=== PATIENT | male | born 1940 | race Caucasian/White ===

== ENCOUNTER 2018-05-23 08:32 | Inpatient (IN) | payer MEDICARE, OTHER ==
[~2018-05-23] VITALS: Ht 167.6 cm; Wt 80.6 kg
[~2018-05-23 08:32] MED LIST: ACET325 PO; AMLO5 PO; ASPI81EC PO; BACL10; BACL10 PO; CHOL10002 PO; CLOP75 PO; CYCL10 PO; Cymbalta30 MG PO; FINA5 PO; FURO40 PO; GABA300; GABA300 PO; GABA600 PO; HYDACE5; HYDMOR2 PO; HYDMOR4 PO; HYDROCODONE; LAVAP17G; LISI20; LISI20 PO; METO25 PO; MULVITMIND PO; Multiple Vitam1 EAC1 PO; Nitrostat0.4 MG SL; OMEG1CAP30 PO; OXYC10ER PO; OXYC40ER; OXYC40ER PO; Omega 3 1,0001 EACH PO; PRED20 PO; REFRESH TEARS BOTHEYES; TAMS.4ER; TAMS.4ER PO; TEMA15; XARELTO20 MG PO; ZOLP10; ZOLP5 PO
[2018-05-23 09:32] LABS: BASOPHILS ABSOLUTE AUTO 0.04 K/mm3 (0.00-0.23); BASOPHILS PERCENT AUTO 0 % (0-2); EOSINOPHILS ABSOLUTE AUTO 0.01 K/mm3 (0.00-0.68); EOSINOPHILS PERCENT AUTO 0 % (0-6); Hematocrit 26.8 % (37.0-53.0); Hemoglobin 8.1 g/dL (13.5-17.5); IMMATURE GRAN ABSOLUTE AUTO 0.13 K/mm3 (0.00-0.10); IMMATURE GRAN PERCENT AUTO 1 % (0-1); LYMPHOCYTES ABSOLUTE AUTO 1.63 K/mm3 (0.84-5.20); LYMPHOCYTES PERCENT AUTO 10 % (21-46); MONOCYTES ABSOLUTE AUTO 1.04 K/mm3 (0.16-1.47); MONOCYTES PERCENT AUTO 6 % (4-13); Mean Corpuscular HGB 32.1 pg (26.0-34.0); Mean Corpuscular HGB Conc 30.2 g/dL (31.5-36.5); Mean Corpuscular Volume 106 fL (80-100); NEUTROPHILS PERCENT AUTO 83 % (41-73); NRBC ABSOLUTE 0.07 K/mm3 (0.00-0.02); NRBC Auto 0.4 /100 WBC (0.0-0.2); Platelet Count 345 K/mm3 (150-400); RDW Coefficient Variation 14.9 % (11.7-14.2); RDW Standard Deviation 57.1 fL (35.1-46.3); Red Blood Cell Count 2.52 M/mm3 (4.30-5.90); White Blood Cell Count 16.25 K/mm3 (4.00-11.30)
[2018-05-23 10:14] LABS: Albumin, Blood 3.2 g/dL (3.4-5.0); Albumin/Globulin Ratio 0.8 (0.8-1.8); Bilirubin, Total 0.9 mg/dL (0.1-1.0); Bun/Creatinine Ratio 40.3 (12.0-20.0); Calcium, Blood 8.9 mg/dL (8.5-10.1); Creatinine, Blood 1.29 mg/dL (0.60-1.20); Globulin, Blood 4.1 g/dL (2.2-4.0); Potassium, Blood 4.2 mmol/L (3.5-5.5); Total Protein, Blood 7.3 g/dL (6.4-8.2)
[2018-05-23 10:22] LABS: Troponin I 1.01 ng/mL (0.000-0.040)
[2018-05-23 12:02] LABS: International Normalized Ratio 1.34; Prothrombin Time Results 13.8 Sec (9.7-11.5)
[2018-05-23] MEDS ORDERED: ACID REDUCER20 MG PO (13:49)
[2018-05-23] MEDS ORDERED: IBUP400 PO (13:49)
[2018-05-23] MEDS ORDERED: [UNRECOGNIZED DRUG - CODE] PO (14:59)
[2018-05-23 15:07] LABS: PCO2 Arterial 23.8 mmHg (35-45); PO2 Arterial 58.8 mmHg (80-100); pH Blood Arterial 7.46 (7.35-7.45)
[2018-05-23 16:58] LABS: Source, Urine Clean Catch
[2018-05-23 17:06] LABS: Bilirubin, Urine Neg (Neg); Blood, Urine 2+ (Neg); Glucose Qualitative, Urine Neg (Neg); Ketones, Urine 2+ (Neg); Leukocyte Esterase, Urine Neg (Neg); Nitrite, Urine Neg (Neg); Protein, Urine 2+ (Neg); Specific Gravity, Urine 1.025 (1.003-1.022); Urobilinogen, Urine 1+ (Normal)
[2018-05-23 17:29] LABS: Appearance, Urine Clear (Clear); Color, Urine Yellow (P-Yellow)
[2018-05-23 17:32] LABS: Squamous Epithelial Cells Few /hpf (Few)
[2018-05-23 17:34] LABS: Mucus Mod (0-Heavy)
[2018-05-23 17:35] LABS: Amorphous Light (0-Heavy); Bacteria Few /hpf
[2018-05-23 19:15] LABS: Creatine Kinase MB 6.4 ng/mL (0.0-3.6)
[2018-05-23 19:21] LABS: Troponin I 1.3 ng/mL (0.000-0.040)
--- NOTE | 2018-05-23 19:52 | NUR ---
ARRIVAL TO UNIT Assumed care of pt upon arrival to unit at 1541. Report recieved from Mercedes PACHECO. Pt arrived wearing venturi mask at 31% FiO2 and 4 LPM. Pt arrived with his spouse, Autumn, who helped with admission questions. Autumn stated she gave his medication list to EMS and will bring in a medication list to our unit tomorrow. Autumn also completed the pt's consent to verbal release of information and blood consent. Pt able to state "yes" or "no" to answer questions and often requires reorientation. Pt able to state name and date of . When asked where he is, he exclaims "I don't know". Pt provides the same response when asked what year it is. Per the pt's , the pt does not drink alcohol. She also states that he is wheelchair bound at baseline. Pt removes venturi mask often. O2 sats remain 90% or greater with room air. ST per telemetry. Fleets enema administered. Bedside report given to Henrietta PACHECO who is to assume care of pt at this time.
--- NOTE | 2018-05-23 19:59 | NUR ---
DNR Spouse, Autumn, verified the pt's DNR status. Order double-checked by Veronica PACHECO. Wristband placed to right wrist.
[2018-05-24 02:24] LABS: BASOPHILS ABSOLUTE AUTO 0.03 K/mm3 (0.00-0.23); BASOPHILS PERCENT AUTO 0 % (0-2); EOSINOPHILS PERCENT AUTO 0 % (0-6); Hematocrit 27.1 % (37.0-53.0); Hemoglobin 8.3 g/dL (13.5-17.5); IMMATURE GRAN ABSOLUTE AUTO 0.26 K/mm3 (0.00-0.10); IMMATURE GRAN PERCENT AUTO 1 % (0-1); LYMPHOCYTES ABSOLUTE AUTO 1.04 K/mm3 (0.84-5.20); LYMPHOCYTES PERCENT AUTO 6 % (21-46); MONOCYTES ABSOLUTE AUTO 1.13 K/mm3 (0.16-1.47); MONOCYTES PERCENT AUTO 6 % (4-13); Mean Corpuscular HGB 32.9 pg (26.0-34.0); Mean Corpuscular HGB Conc 30.6 g/dL (31.5-36.5); Mean Corpuscular Volume 108 fL (80-100); Mean Platelet Volume 10.1 fL (9.1-12.4); NEUTROPHILS PERCENT AUTO 87 % (41-73); NRBC ABSOLUTE 0.23 K/mm3 (0.00-0.02); NRBC Auto 1.2 /100 WBC (0.0-0.2); Platelet Count 329 K/mm3 (150-400); RDW Coefficient Variation 15.4 % (11.7-14.2); RDW Standard Deviation 57.5 fL (35.1-46.3); Red Blood Cell Count 2.52 M/mm3 (4.30-5.90); White Blood Cell Count 19.06 K/mm3 (4.00-11.30)
[2018-05-24 02:41] LABS: Albumin, Blood 3.1 g/dL (3.4-5.0); Albumin/Globulin Ratio 0.9 (0.8-1.8); Bilirubin, Total 1.5 mg/dL (0.1-1.0); Bun/Creatinine Ratio 48.4 (12.0-20.0); Calcium, Blood 8.5 mg/dL (8.5-10.1); Creatinine, Blood 1.28 mg/dL (0.60-1.20); Globulin, Blood 3.6 g/dL (2.2-4.0); Potassium, Blood 3.9 mmol/L (3.5-5.5); Total Protein, Blood 6.7 g/dL (6.4-8.2)
[2018-05-24 02:46] LABS: Creatine Kinase MB 15.2 ng/mL (0.0-3.6); Creatine Kinase MB Index 1.6 (0.0-4.0)
[2018-05-24 02:58] LABS: Percent Saturation 26.1 % (20.0-50.0)
[2018-05-24 03:04] LABS: Troponin I 5.36 ng/mL (0.000-0.040)
--- NOTE | 2018-05-24 06:29 | NUR ---
SHIFT SUMMARY: PATIENT INTERMITTENT CONFUSION, C/O PAIN IN RIGHT HIP AND LOWER BACK, MEDICATION GIVEN PER MD ORDERS. -DIGITAL DISIMPACTION ATTEMPTED PER MD ORDERS, NO FECAL MATTER FOUND IN RECTUM -PHOTOS TAKEN OF LEFT LEG SCABS, LEFT FOOT WOUNDS, AND RIGHT BIG TOE BLACK SPOT -PATIENT VOMITED DARK MAROON SUBSTANCE, PATIENT C/O CHEST PAIN-MEDICATION GIVEN AND EKG OBTAINED, MD FREY AWARE, ORDERS RECIEVED TROPONIN AND LACTIC LAB VALUES INCREASING, MD JEFFERSON MADE AWARE, ORDERS RECIEVED PATIENT MONITORED ALMOST ONE ON ONE ALL NIGHT, RESTRAINTS ORDER RECIEVED AND INITIATED THIS AM AT APPROX 0620, BED LOW AND LOCKED, CALL LIGHT WITHIN REACH
--- NOTE | 2018-05-24 08:30 | NUR ---
pt labs are worsening, Dr. Malave notified, he came to see pt and sent to icu, report given to Tanisha. all belongings went with pt. brother notified of move and he will notify .
[2018-05-24 09:27] LABS: Bun/Creatinine Ratio 47.8 (12.0-20.0); Calcium, Blood 8.7 mg/dL (8.5-10.1); Creatinine, Blood 1.38 mg/dL (0.60-1.20)
--- NOTE | 2018-05-24 09:28 | NUR ---
TRANSFER: RECEIVED PT FROM PCU. PT IS DROWSY, RESPONDS EASILY TO VOICE. HE IS ORIENTED TO PERSON AND FAMILY, SOMETIMES FOLLOWS COMMANDS. DISORIENTED TO PLACE AND TIME. HE MOANS FREQUENTLY, BUT WHEN ASKED IF HE IS HAVING PAIN HE DENIES IT OR SAYS 'NOT TOO BAD.' PT HAS MULTIPLE BRUISES OVER HIS BODY. PT'S SAYS IT IS FROM HIM RUNNING INTO THINGS AT HOME AND BEING ON XARELTO. LUNGS HAVE CRACKLES, SPO2 88% ON RA, PLACED ON 4L/NC AND SPO2 94%. SR, MURMUR, BP STABLE, SEE VITALS. PT'S TOES HAVE PURPLE DISCOLORATION, WHICH PT'S SAYS IS NORMAL FOR HIM DUE TO PVD. DR. PETTIT HAS BEEN NOTIFIED OF CONSULT. DR. CHAHAL IN THE ROOM CURRENTLY.
--- NOTE | 2018-05-24 16:39 | NUR ---
SHIFT SUMMARY: PT IS MORE ALERT THAN WHEN HE FIRST ARRIVED THIS MORNING. HE IS STILL CONFUSED AND ONLY ORIENTED TO HIS FAMILY, BUT HE IS FOLLOWING COMMANDS AND NOT PULLING AT LINES SO RESTRAINTS WERE ABLE TO BE DISCONTINUED. DISCUSSED WITH HIS FAMILY THAT HE MAY HAVE TO GO BACK INTO RESTRAINTS TONIGHT IF HE GETS MORE AGITATED AGAIN. HIS LUNGS CONTINUE TO HAVE CRACKLES IN THE BASES AND HE HAS A WET SOUNDING COUGH ALTHOUGH NO SPUTUM HAS COME UP. HE GOES IN AND OUT OF SR AND AFIB. BP HAS REMAINED STABLE. FAMILY HAD A LONG CONVERSATION WITH DR. ESCOBAR THIS AFTERNOON. THE DISCUSSION AMONG FAMILY HAS SOUNDED APPROPRIATE TO THE SITUATION WITH REALISTIC EXPECTATIONS FOR PT'S RECOVERY.
[2018-05-25 03:33] LABS: BASOPHILS ABSOLUTE AUTO 0.02 K/mm3 (0.00-0.23); BASOPHILS PERCENT AUTO 0 % (0-2); EOSINOPHILS PERCENT AUTO 0 % (0-6); Hematocrit 25.3 % (37.0-53.0); Hemoglobin 7.9 g/dL (13.5-17.5); IMMATURE GRAN ABSOLUTE AUTO 0.41 K/mm3 (0.00-0.10); IMMATURE GRAN PERCENT AUTO 2 % (0-1); LYMPHOCYTES ABSOLUTE AUTO 0.87 K/mm3 (0.84-5.20); LYMPHOCYTES PERCENT AUTO 5 % (21-46); MONOCYTES ABSOLUTE AUTO 0.91 K/mm3 (0.16-1.47); MONOCYTES PERCENT AUTO 5 % (4-13); Mean Corpuscular HGB 32.8 pg (26.0-34.0); Mean Corpuscular HGB Conc 31.2 g/dL (31.5-36.5); Mean Platelet Volume 10.2 fL (9.1-12.4); NEUTROPHILS ABSOLUTE AUTO 15.75 K/mm3 (1.96-9.15); NEUTROPHILS PERCENT AUTO 88 % (41-73); NRBC ABSOLUTE 0.54 K/mm3 (0.00-0.02); Platelet Count 247 K/mm3 (150-400); RDW Coefficient Variation 15.6 % (11.7-14.2); RDW Standard Deviation 56.6 fL (35.1-46.3); Red Blood Cell Count 2.41 M/mm3 (4.30-5.90); White Blood Cell Count 17.96 K/mm3 (4.00-11.30)
[2018-05-25 03:34] LABS: Mean Corpuscular Volume 105 fL (80-100)
[2018-05-25 03:55] LABS: Albumin, Blood 2.7 g/dL (3.4-5.0); Albumin/Globulin Ratio 0.8 (0.8-1.8); Bilirubin, Total 1.7 mg/dL (0.1-1.0); Bun/Creatinine Ratio 49.1 (12.0-20.0); Creatinine, Blood 1.63 mg/dL (0.60-1.20); Globulin, Blood 3.2 g/dL (2.2-4.0); Potassium, Blood 3.5 mmol/L (3.5-5.5); Total Protein, Blood 5.9 g/dL (6.4-8.2)
--- NOTE | 2018-05-25 04:11 | NUR ---
SHIFT SUMMARY: PATIENT TROPONINS AND WBC LAB VALUES BEGINNING TO TREND DOWN SLIGHTLY, HGB DROPPED FROM 8.3 TO 7.9. PATIENT COGNITION MUCH BETTER THIS SHIFT, SLEPT WELL WITH ONLY 2 EPIODES OF FEAR/ANXIETY, EASILY REORIENTED. PATIENT HAS VERY SHORT EPISODES OF O2 DESATURATION INTO THE MID 80'S WHILE SLEEPING, LASTING APPROX 5-10 SECOUNDS. PATIENT HAS HX OF NICK BUT PER MD NOTES, CANNOT WEAR A CPAP. PATIENT ABLE TO SWALLOW PILLS SLOWLY WITH WATER AND HOB ALL THE WAY UP. POWERGLIDE PLACED IN SUDHEER 09/11. VSS, NO OTHER ISSUES NOTED, PALLIATIVE CONSULT TODAY 05/25/18, BED LOW AND LOCKED, CALL LIGHT WTIHIN REACH, PATIENT VISIBLE TO STAFF AT ALL TIMES AND MONITORED CLOSELY.
--- NOTE | 2018-05-25 08:09 | NUR ---
PT IS MORE ALERT THIS MORNING THAN YESTERDAY, ALTHOUGH SKIN APPEARS MORE PALE. HE HAD SOME NAUSEA THIS MORNING THAT RESOLVED QUICKLY WITH ZOFRAN. PT WAS ABLE TO TAKE HIS MORNING PILLS. HE COMPLAINED OF CONSTIPATION OVERNIGHT SO STOOL SOFTENER GIVEN THIS MORNING.
--- NOTE | 2018-05-25 09:34 | NUR ---
DR. CHAHAL CAME BY TO SEE PT. DISCUSSED WITH HIM HOLDING THE HEPARIN BECAUSE OF THE ANEMIA AND QUESTIONABLE HEMATEMESIS 2 NIGHTS AGO WELL THE ATORVASTATIN BECAUSE OF THE ELEVATED LIVER ENZYMES. RECEIVED OK TO HOLD BOTH. ALSO GIVEN ORDERS FOR HEPATITS PANEL LABS, REPEAT LACTIC AND H/H AT 1200, LIVER DUPLEX AND CONSULT TO GI. PT'S IS AT THE BEDSIDE. PALLIATIVE CARE NOTIFIED OF HER WANTING TO SPEAK WITH THEM AND THEY ARE AT THE BEDSIDE TALKING WITH AND MALLORY CURRENTLY.
--- NOTE | 2018-05-25 10:18 | NUR ---
Initial Visit: Palliative Care Consult for goals of care including comfort care. Pt resting with his eyes closed during visit. He appears comfortable with no signs of distress at this time. Autumn and daughter Becky present during visit. Engaged in therapeutic conversation about goals of care. Pt is resting for much of visit and discussion was made with family. Autumn reports Pt lives at home with her and he is of Yarsanism marixa. She reports her family and friends are supportive but may need extra support from outside care agency to provide care. Educated family on hospice philosophy and comfort care with V/U made by family. Family reports that the Pt would want comfort measures only and are considering this decision. They are waiting for one more family member before making the decision. Answered questions and offered emotional support. Spoke with Pt's nurse Martina and she will contact palliative care when family has made a decision. Martina is agreeable to plan of comfort care and hospice if family chooses this plan. Spoke with Dr Malave before Pt visit and he requested palliative care to discuss comfort care and hospice. PPS score 40% KPS score 40 Plan is to remain available for therapuetic visits and symptom management. Will place hospice referral if family chooses this route.
[2018-05-25 12:00] LABS: Hematocrit 26.4 % (37.0-53.0); Hemoglobin 8.3 g/dL (13.5-17.5)
--- NOTE | 2018-05-25 12:54 | NUR ---
REASSESSMENT: PT HAS CONTINUED TO BE AWAKE THROUGHOUT THE MORNING, SOMETIMES SLOW TO RESPOND BUT MOSTLY CONVERSING APPROPRIATELY WITH HIS VISITORS. HE REMAINS CONFUSED TO DATE AND SOMETIMES PLACE. LUNGS STILL HAVE CRACKLES IN THE BASES, BUT HE HAS MAINTAINED SPO2 GREATER THAN 90% ON RA. HE IS STILL GOING BETWEEN NSR AND AFIB, BP HAS BEEN STABLE. HE HAS BEEN NAUSEOUS TWICE, WHICH RESOLVED WITH NAUSEA MEDICATION. STILL CONSTIPATED WITH NO BM. FAMILY HAS SPOKEN WITH PALLIATIVE CARE TODAY. CONTINUING TO MONITOR.
--- NOTE | 2018-05-25 17:33 | NUR ---
SHIFT SUMMARY PT HAS BEEN RESTING IN BED THROUGHOUT THE DAY. HE REMAINS ALERT, BUT HAS APPEARED MORE UNCOMFORTABLE THE DAY PROGRESSED. PT'S LUNGS STILL HAVE A FEW CRACKLES IN THE BASES. HE HAS BEEN ON RA, BUT WHEN HE HAS BEEN RESTING THIS AFTERNOON HIS OXYGEN IS DROPPING TO THE LOW 80S SO 2L/NC PUT BACK ON HIM. HE HAS SPENT MOST OF THE DAY IN SR, FEW SHORT RUNS OF V-TACH, ASYMPTOMATIC, BP STABLE. HAD OVER 1.5L OF URINE OUTPUT. NO BM. PT'S FAMILY HAD LONG DISCUSSION WITH PALLIATIVE CARE TODAY. THEY ARE CONTINUING WITH CARE AT THIS POINT, BUT COMFORT IS A TOP PRIORITY FOR THE PT. CONTINUING TO MONITOR AND PROVIDE CARE PER FAMILY'S WISHES.
[2018-05-25 17:43] LABS: Vancomycin, Trough 14.4 ug/mL (5.0-10.0)
--- NOTE | 2018-05-25 19:57 | NUR ---
PATIENT SLEEPING AWAKENS TO VERBAL STIMULI ANSWERING SIMPLE DIRECTIONS, THEN FALLING BACK TO SLEEP. PATIENT VERBALIZED HE WANTS TO SLEEP. ULTRASOUND IN ROOM FOR LIVER US. PATIENTS DAUGHTER AT BEDSIDE PROVIDING GOOD SUPPORT. ON 2L/NC STRONG MOIST COUGH SWALLOWING SPUTUM.
[2018-05-26 04:09] LABS: BASOPHILS ABSOLUTE AUTO 0.04 K/mm3 (0.00-0.23); BASOPHILS PERCENT AUTO 0 % (0-2); EOSINOPHILS ABSOLUTE AUTO 0.02 K/mm3 (0.00-0.68); EOSINOPHILS PERCENT AUTO 0 % (0-6); Hematocrit 25.9 % (37.0-53.0); Hemoglobin 8.1 g/dL (13.5-17.5); IMMATURE GRAN ABSOLUTE AUTO 0.52 K/mm3 (0.00-0.10); IMMATURE GRAN PERCENT AUTO 3 % (0-1); LYMPHOCYTES ABSOLUTE AUTO 1.88 K/mm3 (0.84-5.20); LYMPHOCYTES PERCENT AUTO 10 % (21-46); MONOCYTES PERCENT AUTO 5 % (4-13); Mean Corpuscular HGB 32.1 pg (26.0-34.0); Mean Corpuscular HGB Conc 31.3 g/dL (31.5-36.5); Mean Corpuscular Volume 103 fL (80-100); Mean Platelet Volume 10.7 fL (9.1-12.4); NEUTROPHILS ABSOLUTE AUTO 15.89 K/mm3 (1.96-9.15); NEUTROPHILS PERCENT AUTO 83 % (41-73); NRBC ABSOLUTE 0.81 K/mm3 (0.00-0.02); NRBC Auto 4.2 /100 WBC (0.0-0.2); Platelet Count 240 K/mm3 (150-400); RDW Coefficient Variation 16.1 % (11.7-14.2); RDW Standard Deviation 55.7 fL (35.1-46.3); Red Blood Cell Count 2.52 M/mm3 (4.30-5.90); White Blood Cell Count 19.25 K/mm3 (4.00-11.30)
[2018-05-26 04:39] LABS: Albumin, Blood 2.5 g/dL (3.4-5.0); Albumin/Globulin Ratio 0.8 (0.8-1.8); Bilirubin, Total 1.6 mg/dL (0.1-1.0); Calcium, Blood 7.7 mg/dL (8.5-10.1); Creatinine, Blood 1.64 mg/dL (0.60-1.20); Total Protein, Blood 5.5 g/dL (6.4-8.2)
[2018-05-26 05:07] LABS: HBSAG SCREEN Negative (Negative); HEP A AB, IGM Negative (Negative); HEP B CORE AB, IGM Negative (Negative); HEP C VIRUS AB <0.1 (0.0-0.9)
--- NOTE | 2018-05-26 05:50 | NUR ---
PATIENT RESTLESS AND C/O PAIN 10/10 UNABLE TO LAY STILL DUE TO PAIN. NO RELIEF WITH DILAUDID IV, MORNING DOSE OF OXYCODONE GIVEN TO HELP WITH PAIN.
--- NOTE | 2018-05-26 05:55 | NUR ---
SUMMARY PATIENT SLEEPING MOST OF THE NIGHT WAKING TO VERBAL STIMULI FOLLOWING DIRECTIONS AND ANSWERING SIMPLE QUESTIONS, SLIGHTLY FORGETFUL. PATIENT ASSISTING WITH REPOSITIONING. PATIENT MORE AWAKE THIS EARLY AM AND C/O SEVERE PAIN "ALL OVER" PRN DILAUDID GIVEN WITH NO RELIEF, MORNING DOSE OF OXYCODONE GIVEN. PATIENT CALI PO WITHOUT DIFFICULTY. PATIENT BIOX DROPPING TO 83% WHEN ON RA. OXYGEN 2L/NC IN PLACE PATIENT NEEDING FREQUENT REMINDING TO KEEP OXYGEN IN PLACE.
--- NOTE | 2018-05-26 12:10 | NUR ---
PT HAS BEEN RESTING QUIETLY WITH HIS FAMILY AT THE BEDSIDE SINCE HIS BATH THIS MORNING. FAMILY REQUESTED TURNS BE HELD UNTIL PT IS AWAKE. NO OTHER REQUESTS FROM FAMILY AT THIS TIME. CONTINUING TO MONITOR.
--- NOTE | 2018-05-26 13:33 | NUR ---
Family was dismissive of pastoral care preferring their own strategic planning specialist provide spiritual certified genetic counselor and prayer. Pt appeared restless. I will remain available.
--- NOTE | 2018-05-26 15:00 | NUR ---
ASSUMED CARE: REPORT RECIEVED FROM JAYDE PACHECO. FAMILY AT BEDSIDE. NO NEEDS NOTED
--- NOTE | 2018-05-26 17:02 | NUR ---
RETURNED CARE TO JAYDE PACHECO
--- NOTE | 2018-05-26 18:30 | NUR ---
SHIFT SUMMARY: PT WAS LESS ALERT TODAY THAN YESTERDAY. HE REQUIRED VERBAL AND SOMETIMES TACTILE STIMULATION TO WAKE UP, THEN WOULD QUICKLY FALL BACK ASLEEP. HIS LUNGS STILL HAVE A FEW CRACKLES IN THE BASES. HE WAS MADE MEDICAL STATUS TODAY. FAMILY REMAINS AT THE BEDSIDE. CONTINUING TO KEEP PT COMFORTABLE WHILE STILL TREATING HIM. FAMILY HAS BEEN DRIVING MOST OF THE DECISIONS IN CARE, WANTING TO LEAVE HIM UNDISTURBED IF HE IS RESTING.
--- NOTE | 2018-05-26 19:49 | NUR ---
PATIENT RESTING QUIETLY WITH FAMILY AT BEDSIDE. RESP EVEN AND UNLABORED WITH 2L/NC IN PLACE. PLAN TO TRANSFER TO [facility] MEDICAL NO TELE STATUS WHEN ROOM IS CLEAN.
--- NOTE | 2018-05-26 21:19 | NUR ---
RECEIVED MED NO TELE PT FROM ICU FOR PCU 13.[id number] OPENS EYES WHEN MOVING VIA 4 PERSON TO BED. MOUTH BREATHING. AND CYCLIC BREATHING NOTED PERIODS OF APNEA. VS TAKEN AT 1930 AND WNL. O2 LEFT ON PER NC AT 2 L TO ASSIST W/ PERIODS OF APNEA REPORTED PER AUDIOVISUAL TECHNICIAN PER HX OF NICK/ TAKES A DEEP BREATH SOME HYPER VENTILATING OR MORE PANTING DEEPER BREATHS . NOTED [employer] AND CLEAR UPPER AIRWAYS. ARROUSED NOW TO NAME AND SAYS "U HUH" WHEN ASKED IF HE IS DOING OK. KEEPS EYES CLOSED.NOIST COUGH, AND SOME AUDIBLE WHEEZE SOUND WHEN BREATHING MORE RAPIDLY. NO APPARAENT DISTRESS, PAIN OR AIR HUNGER AT THIS TIME./
[2018-05-27 05:14] LABS: Hematocrit 30.5 % (37.0-53.0); Hemoglobin 9.4 g/dL (13.5-17.5); Mean Corpuscular HGB 32.5 pg (26.0-34.0); Mean Corpuscular HGB Conc 30.8 g/dL (31.5-36.5); Mean Platelet Volume 10.7 fL (9.1-12.4); NRBC ABSOLUTE 2.65 K/mm3 (0.00-0.02); NRBC Auto 9.7 /100 WBC (0.0-0.2); Platelet Count 252 K/mm3 (150-400); RDW Coefficient Variation 16.9 % (11.7-14.2); RDW Standard Deviation 58.2 fL (35.1-46.3); Red Blood Cell Count 2.89 M/mm3 (4.30-5.90); White Blood Cell Count 27.29 K/mm3 (4.00-11.30)
[2018-05-27 05:17] LABS: Mean Corpuscular Volume 106 fL (80-100)
[2018-05-27 05:54] LABS: Albumin, Blood 2.6 g/dL (3.4-5.0); Albumin/Globulin Ratio 0.8 (0.8-1.8); Bun/Creatinine Ratio 43.3 (12.0-20.0); Calcium, Blood 8.1 mg/dL (8.5-10.1); Creatinine, Blood 1.87 mg/dL (0.60-1.20); Globulin, Blood 3.4 g/dL (2.2-4.0); Potassium, Blood 3.3 mmol/L (3.5-5.5)
--- NOTE | 2018-05-27 06:11 | NUR ---
SHIFT SUMMARY. ATIVAN GIVEN RECENTLY , SMALL DOSE. MOANING AND HALLUCINATIONS WHEN QUESTIONED ABOUT PAIN STATES HE IS NOT IN PAIN. SUDDENLY FALLS OFF TO SLEEP AND HAS SHORT PERIOD OF APNEA. THIS IS A FREQUENT CYCLE. SAT SPOT CHECK IS WNL SAT. CONSTANTLY PULLS OFF O2 AND LEFT OFF WHEN SAT WNL. STILL HAS THIS HYPERVENTILATING AND APNEC BREATHING PATTERN. RESTLESS BUT UNABLE TO REPORT DIFFICULTY. OCC HE SAYS TURN ME,.DID YOU DRAW MY BLOOD YET. A LITTLE MORE COMFORTABLE POST ATIVAN. LESS RESTLESS MOANING.
[2018-05-27 06:15] LABS: BAND PERCENT MAN 5 % (0-8); BASOPHILS PERCENT MAN 0 % (0-2); EOSINOPHILS ABSOLUTE MAN 0.27 K/mm3 (0.00-0.68); EOSINOPHILS PERCENT MAN 1 % (0-6); LYMPHOCYTES ABSOLUTE MAN 4.63 K/mm3 (0.84-5.20); LYMPHOCYTES PERCENT MAN 17 % (21-46); METAMYELOCYTE ABSOLUTE MAN 0.54 K/mm3 (0.00-0.00); METAMYELOCYTE PERCENT MAN 2 % (0-0); MONOCYTES ABSOLUTE MAN 1.63 K/mm3 (0.16-1.47); MONOCYTES PERCENT MAN 6 % (4-13); MYELOCYTE ABSOLUTE MAN 0.54 K/mm3 (0.00-0.00); MYELOCYTE PERCENT MAN 2 % (0-0); NEUTROPHILS ABSOLUTE MAN 19.64 K/mm3 (1.96-9.15); SEG NEUTROPHILS PERCENT MAN 67 % (41-73); TOTAL CELLS COUNTED 100
--- NOTE | 2018-05-27 11:05 | NUR ---
BEGINNING OF SHIFT Assumed care of pt at 0700. Report recieved from Gayle PACHECO. Pt on room air. Responsive only to pain. Pt does not follow directions. Significant periods of apnea noted. Family at bedside around 0800. Update provided to family. Family denies need at this time. Bed in lowest position. Call light in reach.
--- NOTE | 2018-05-27 13:10 | NUR ---
Met with Alli's family in his room during Dr. Vlad Stark's visit. Dr. Stark had a long discussion with family and answered questions. Pt is unresponsive during this visit. He occasionally moans and reaches out with his arms. Family members had a chance to ask MD questions. They have chosen to pursue comfort measures at this time. Education given re: comfort measures and EOL signs and symptoms. Booklets on comfort care, gone from my sight and the eleventh hours also given to pt's family as they states "We like to research things." Questions re: comfort care answered. Will allow family to review materials and encouraged them to ask questions. Nursing updated on change to comfort care. Dr. Stark stated he will place comfort care orders.
--- NOTE | 2018-05-27 17:15 | NUR ---
TRANSFER TO MEDICAL FLOOR Pt transferred to medical floor at 1523. Pt's accompanied to to new room. Report given to Paola PACHECO. Pt transferred from PCU bed to medical floor bed with slider sheet and 4 staff. Pt tolerated transfer well. Chart, belongings, and medications tranferred with patient.
--- NOTE | 2018-05-27 18:18 | NUR ---
SHIFT SUMMARY PT XFER'D FROM U THIS SHIFT, 1519, REC REPORT FROM JUNIOR CADE, AND DAUGHTER AT BEDSIDE T/O SHIFT, PT REMAINS UNRESPONSIVE, APPEARS TO BE RESTING COMFORTABLY AT THIS TIME.
--- NOTE | 2018-05-28 12:03 | NUR ---
Spiritual care visit attempted. I responded to a call from patient's nurse, Paola. I entered room and introduced myself and patient's family said that they were ok and that their net applications developer was on the way and did not need any spiritual care. I left room
--- NOTE | 2018-05-28 14:10 | NUR ---
SHIFT SUMMARY PT 1140, FAMILY AT BEDSIDE, DR Vlad HOLLIDAY NOTIFIED, PT TRANSPORTED TO [facility] @ 1350, FAMILY TOOK ALL BELONGINGS FROM ROOM.
== END 2018-05-28 11:40 | DRG 871 ==
LOC: ER 08:32 → ERHOLD 14:45 → ICUE 14:45 → PCU 16:02 → ICUE 17:29 → PCU 05-26 21:04 → MEDS 05-27 11:50 → ENPENDDIS 05-28 11:56
PROVIDERS: Emergency Medicine; Internal Medicine; ADMIT Family Medicine
DX: A41.9 Sepsis, unspecified organism (principal); I21.4 Non-ST elevation (NSTEMI) myocardial infarction; I50.21 Acute systolic (congestive) heart failure; J18.9 Pneumonia, unspecified organism; J96.01 Acute respiratory failure with hypoxia; G93.41 Metabolic encephalopathy; R65.21 Severe sepsis with septic shock; K72.00 Acute and subacute hepatic failure without coma; C79.89 Secondary malignant neoplasm of other specified sites; I13.0 Hypertensive heart and chronic kidney disease with heart failure and stage 1 through stage 4 chronic kidney disease, or unspecified chronic kidney disease; I35.0 Nonrheumatic aortic (valve) stenosis; I95.9 Hypotension, unspecified; F03.90 Unspecified dementia, unspecified severity, without behavioral disturbance, psychotic disturbance, mood disturbance, and anxiety; I25.10 Atherosclerotic heart disease of native coronary artery without angina pectoris; I25.5 Ischemic cardiomyopathy; G89.4 Chronic pain syndrome; M48.061 Spinal stenosis, lumbar region without neurogenic claudication; C61 Malignant neoplasm of prostate; I48.0 Paroxysmal atrial fibrillation; Z66 Do not resuscitate; N18.3 Chronic kidney disease, stage 3 (moderate); D63.1 Anemia in chronic kidney disease
CPT/HCPCS: 36415; 36600; 51702; 70450; 71045; 71260; 74177; 80048; 80053; 80074; 80202; 81001; 82140; 82550; 82553; 82728; 82803; 83540; 83550; 83605; 83880; 84484; 85014; 85018; 85025; 85379; 85610; 85730; 86850; 86900; 86901; 87040; 93005; 93010; 93308; 93321; 93970; 93975; 94640; 94760; 96365-59; 96366-59; 96367-59; 96375-59; 96376-59; 99285-25; C1751; J1170; J1644; J1940; J1956; J2060; J2405; J2543; J2765; J3370; J3480; J7030; J7040; J7120; Q9967